=== PATIENT | female | born 1950 | race Caucasian/White ===

== ENCOUNTER 2020-06-09 20:50 | Emergency (ER) | payer MEDICARE, SELFPAY ==
--- NOTE | 2020-06-09 21:00 | PC.NURSE ---
room assignment given
--- NOTE | 2020-06-09 21:18 | ECG_ITS ---
APPROVED REPORT Exam: Resting ECG HR:71 bpm ECG Measurements Heart Rate 71 AXES IN 204 P 43 QRSd 90 QRS 15 QT 376 T 43 QTc 408 <Conclusion> Normal sinus rhythm Normal ECG Electronically signed by : Camilo Strong, 06/10/2020 08:58:30
[2020-06-09 21:19] VITALS: BP 182/75; PULSE 72; RESP 18; TEMP 36.7; O2SAT 97; BMI 33.8
--- NOTE | 2020-06-09 21:28 | XR_ITS ---
PROCEDURE: XR CHEST 2V CLINICAL HISTORY: htn Hypertension COMPARISON: No exams were available for comparison FINDINGS: The cardiomediastinal silhouette and pulmonary vascularity are within normal limits. The lungs are clear without infiltrates, suspicious nodules, or pleural effusions. There is kyphosis of the thoracic with degenerative changes IMPRESSION: No acute findings. Dictated by: Tino Funk MD 06/10/2020 06:47 Tino Funk MD in [place] 06/10/2020 06:47
[2020-06-09 21:38] LABS: Basophils % 0.4 % (0.1-2.0); Eosinophils # 0.1 K/mm3 (0.0-0.4); Eosinophils % 1.8 % (0.1-12.0); Hematocrit 37.5 % (37.0-47.0); Hemoglobin 12.7 g/dL (12.2-16.2); Lymphocytes # 2.2 K/mm3 (0.7-4.5); Lymphocytes % 31.3 % (10-50); Mean Corpuscular HGB Conc 33.8 g/dL (31.8-35.4); Mean Corpuscular Hemoglobin 30.1 pg (27.0-31.2); Mean Corpuscular Volume 89.1 fl (81-99); Mean Platelet Volume 7.6 fl (7.4-10.4); Monocytes # 0.7 K/mm3 (0.1-1.0); Monocytes % 9.5 % (1.7-9.3); Neutrophils # 4.1 K/mm3 (1.8-7.8); Neutrophils % 57.1 % (37.0-80.0); Platelet Count 185 K/mm3 (142-424); Red Blood Count 4.21 M/mm3 (4.20-5.40); Red Cell Distribution Width 13.6 % (11.5-17.5); White Blood Count 7.2 K/mm3 (4.8-10.8)
[2020-06-09 21:39] LABS: Chloride 101 mmol/L (98-107); Potassium 4.1 mmoL/L (3.5-5.1); Sodium 137 mmol/L (136-145)
[2020-06-09 21:42] LABS: Alanine Aminotransferase 18 U/L (12-78); Albumin/Globulin Ratio 1.3 (1.1-1.8); Alkaline Phosphatase 80 U/L (38-126); Anion Gap 12.1 mEq/L (5-15); Aspartate Amino Transferase 24 U/L (14-36); Bilirubin,Total 0.3 mg/dl (0.2-1.3); Blood Urea Nitrogen 30 mg/dl (7-17); Calcium 9.7 mg/dl (8.4-10.2); Carbon Dioxide 28 mmol/L (22.0-30.0); Creatinine Clearance Estimated 86 mL/min (50-200); Estimated Glomerular Filt Rate 55 ml/min (>60); GFR (African American) 66 ML/MIN (>60); Globulin 3.1 g/dL (1.3-3.2); Glucose 150 mg/dl (74-100); Total Protein,Serum 7.1 g/dl (6.3-8.2)
[2020-06-09 21:50] VITALS: BP 130/67; PULSE 65; RESP 17; O2SAT 97
[2020-06-09 21:56] LABS: Troponin I < 0.01 ng/ml (0.00-0.034)
[2020-06-09 22:30] VITALS: BP 129/64; PULSE 69; RESP 18; O2SAT 96
--- NOTE | 2020-06-09 22:45 | [facility].EDDIZZ ---
ED Disposition Clinical Impression: Hypertensive urgency Disposition: Home, Self-Care Condition on Discharge: Good Instructions: Dizziness, Nonvertigo Additional Instructions: monitor bp and call pcp for follow up Referrals: Adan Bhatti [Primary Care Provider] - - Critical Care Critical Care Time: No Attestation: On 06/09/20, the high probability of a clinically significant, sudden or life threatening deterioration of the following system(s) required my full and direct attention, intervention and personal management. The time I documented below is in addition to time spent performing reported procedures but includes the following listed in this critical care notation. Medical Decision Making - Medical Records Medical records reviewed: Yes: I reviewed the patient's medical records. - Antonio Inquiry Pt receiving controlled substance: No Vital Signs: 06/09/20 21:19 Temperature 98.1 F Temperature Source Oral Pulse Rate [Right] 72 Respiratory Rate 18 Blood Pressure [Right Arm] 182/75 H Blood Pressure Mean [Right Arm] 110 Blood Pressure Source [Right Arm] Automatic Cuff Blood Pressure Position [Right Arm] Sitting 02 Sat by Pulse Oximetry 97 Oxygen Delivery Method Room Air - Lab Data Lab results reviewed: Yes: I reviewed the patient's lab results. Lab Results 06/09/20 21:19: WBC 7.2, RBC 4.21, Hgb 12.7, Hct 37.5, MCV 89.1, MCH 30.1, MCHC 33.8, RDW 13.6, Plt Count 185, MPV 7.6, Neut % (Auto) 57.1, Lymph % (Auto) 31.3, [place] % (Auto) 9.5 H, Eos % (Auto) 1.8, Baso % (Auto) 0.4, Neut # (Auto) 4.1, Lymph # (Auto) 2.2, [place] # (Auto) 0.7, Eos # (Auto) 0.1, Baso # (Auto) 0.0 06/09/20 21:19: Sodium 137, Potassium 4.1, Chloride 101, Carbon Dioxide 28, Anion Gap 12.1, BUN 30 H, Creatinine 1.00, Estimated Creat Clear 86, Estimated GFR 55 L, Est GFR ( Amer) 66, Glucose 150 H, Calcium 9.7, Total Bilirubin 0.3, AST 24, ALT 18, Alkaline Phosphatase 80, Troponin I < 0.01, Total Protein 7.1, Albumin 4.0, Globulin 3.1, Albumin/Globulin Ratio 1.3 Result diagrams: 06/09/20 21:19 06/09/20 21:19 Orders (Tests/Meds): ORDERS Category Date Time Status Chest XR 2 view (NOT portable) [XR chest 2V] Stat Exams 06/09/20 21:28 Taken Troponin I Q3H Lab 06/10/20 00:30 Ordered Troponin I Q3H Lab 06/10/20 03:30 Ordered - Radiology Data #1 Image(s): Chest Image Reviewed: Yes I reviewed the patient's radiology image Preliminary Findings: Normal/NAD - ECG Data Tracing #1 Normal Sinus Rhythm: Yes Ischemic changes: non-specific ST-T wave changes Dizzy HPI - General Chief Complaint: Dizziness Stated Complaint: BP High Time Seen by Provider: 06/09/20 21:35 Mode of Arrival: Ambulatory Source of Information: Patient, Medical Record Limitations: No Limitations Description of Symptoms (Recalled from ER Triage Doc. by RN): pt states she has had high blood pressure today around 200/150. She has recently been titrated down from 40 mg lisinopril to 10 mg. most days her blood pressure is still low. - History of Present Illness HPI Narrative: elevated bp tonight with episode of dizzynness - no chest pain or focal changes MD complaint: dizziness Onset (ago): hour(s) Timing: gradual onset Description: room spinning History of similar episodes: No History of trauma: No Severity: moderate Associated symptoms: denies other symptoms - Related Data Home Medications Medication Instructions Recorded Confirmed Aspirin [Aspir 81] 81 mg PO DAILY 08/08/18 08/08/18 Garlic 1 each PO DAILY 08/08/18 08/08/18 Magnesium 200 mg PO DAILY 08/08/18 08/08/18 Multivit-Min/Iron Fum/Folic AC 1 each PO DAILY 08/08/18 08/08/18 [[id number] Tablet] Simvastatin 20 mg PO DAILY 08/08/18 08/08/18 lisinopriL [Lisinopril 10mg Tab] 10 mg PO DAILY 08/08/18 08/08/18 Allergies Allergy/AdvReac Type Severity Reaction Status Date / Time codeine [CODEINE] Allergy Unknown NA-NAUSEA Verified 08/08/18 08:13
[2020-06-09 23:15] VITALS: BP 122/60; PULSE 70; RESP 18; TEMP 36.7; O2SAT 96
[2020-06-09 23:15] LABS: Appearance,Urine CLEAR (Clear); Bilirubin,Urine Negative (Negative); Blood, Urine Negative (Negative); Color,Urine YELLOW (Yellow); Glucose,Urine (UA) Negative (Negative); Ketones,Urine Negative (Negative); Leukocyte Esterase,Urine 1+ (Negative); Microscopic, Urine URINE MICROSCOPIC (MICROSCOPIC); Nitrate,Urine Negative (Negative); PH,Urine 6.5 (5.0-8.5); Protein,Urine Negative (Negative); Urobilinogen,Urine 0.2 EU/dl (0.2)
[2020-06-09 23:52] LABS: Bacteria,Urine 1+ /lpf
== END 2020-06-09 23:20 | disposition home or self-care (01) ==
PROVIDERS: Emergency Provider Emergency Medicine; PCP Internal Medicine
DX: I16.0 Hypertensive urgency (principal); E11.65 Type 2 diabetes mellitus with hyperglycemia; E78.5 Hyperlipidemia, unspecified; Z88.5 Allergy status to narcotic agent; Z88.2 Allergy status to sulfonamides; Z79.899 Other long term (current) drug therapy
CPT/HCPCS: 71046; 80053; 81001; 84484; 85025; 87086; 93005; 99283

== ENCOUNTER 2021-05-28 10:00 | Outpatient (RCR) | payer MEDICARE, SELFPAY | END 2021-05-28 11:03 | disposition home or self-care (01) | LOC: PT 10:00 | PROVIDERS: PCP Internal Medicine; Visit Provider Internal Medicine | DX: M54.5 Low back pain (principal) | CPT/HCPCS: 97010; 97014; 97110; 97163; G0283 ==

== ENCOUNTER 2024-10-16 14:00 | Outpatient (RCR) | payer MEDICARE, SELFPAY | END 2024-10-16 23:59 | disposition home or self-care (01) | LOC: PT 14:00 | PROVIDERS: PCP Internal Medicine; Visit Provider Orthopaedic Surgery | DX: M25.562 Pain in left knee (principal); Z98.890 Other specified postprocedural states | CPT/HCPCS: 97010; 97110; 97140; 97163; 97530 ==

== ENCOUNTER 2024-10-19 13:57 | Outpatient (RCR) | payer MEDICARE, SELFPAY | END 2024-10-19 23:59 | disposition home or self-care (01) | LOC: PT 13:57 | PROVIDERS: PCP Internal Medicine; Visit Provider Orthopaedic Surgery | DX: Z98.890 Other specified postprocedural states (principal); Z96.652 Presence of left artificial knee joint | CPT/HCPCS: 97110; 97530 ==